=== PATIENT | female | born 1980 | race Asian ===

== ENCOUNTER → 2016-08-23 | Outpatient (CLI) | payer MEDICAID ==
[~2016-08-23] MED LIST: PREN1CAP7 PO
== END ==
LOC: HPND 09:39
PROVIDERS: ATTEND Obstetrics & Gynecology
DX: O09.522 Supervision of elderly multigravida, second trimester (principal); N84.1 Polyp of cervix uteri; N83.201 Unspecified ovarian cyst, right side; Z3A.18 18 weeks gestation of pregnancy
CPT/HCPCS: 76811

== ENCOUNTER 2017-01-25 20:30 | Inpatient (IN) | payer MEDICAID, OTHER ==
[2017-01-25] VITALS (15 sets, daily range): BP systolic 114–150; BP diastolic 60–82; PULSE 78–92; RESP 18; O2SAT 100
[~2017-01-25 20:30] MED LIST changes: +DIPHTH/TETANUS/ACEL PERTUSSIS (BOOSTER) 0.5 ML VIAL/PFS IM ONE; +FERRTAB6 PO; +MEASLES, MUMPS, RUBELLA VACCINE 0.5 ML VIAL SQ ONE
[2017-01-25] MEDS ORDERED: LACTATED RINGER'S 1000 ML INJ 1,000 ML IV PRN (21:12)
[2017-01-25] MEDS ORDERED: LACTATED RINGER'S 1000 ML INJ 1,000 ML IV SCH (21:12)
[2017-01-25] MEDS ORDERED: MINERAL OIL 10 ML VIAL TOPICAL PRN (21:15)
[2017-01-25] MEDS ORDERED: CITRIC ACID-SODIUM CITRATE LIQ 30 ML UDC PO SCH (21:15)
[2017-01-25] MEDS ORDERED: LIDOCAINE HCL 1% 50 ML VIAL I-DERMAL PRN (21:15)
[2017-01-25] MEDS ORDERED: LIDOCAINE HCL 1% 50 ML VIAL INFIL PRN (21:15)
[2017-01-25] MEDS ORDERED: SODIUM CHLORID 0.9% 500 ML INJ 500 ML IV PRN (21:15)
[2017-01-25] MEDS ORDERED: OXYTOCIN 30 UNITS-500ML PREMIX 500 ML IV ONE ×2 (21:15→23:15)
[2017-01-25] MEDS ORDERED: SODIUM CHLOR 0.9% 1000 ML INJ 1,000 ML IV PRN (21:32)
--- NOTE | 2017-01-25 21:43 | HHI.HP ---
History & Physical H&P HPI HPI Travel History International Travel<30 Days: No Contact w/Intl Traveler<30Days: No History of Present Illness HPI is a 36 yr old F at 40/1 presents to the ED with contractions. Accompanied by . States that she starting having contractions at 6:30pm, 3-6 minutes apart. She states they were getting stronger and more intense. She started having a bloody show this morning at 9: 30am. When she went to see her doctor this morning, she was 2cm dilated. She endorses good movement. She denies LOF, vaginal discharge, dysuria, CP, SOB. She has been receiving care at [facility]. History (Limited) History Past Medical History Narrative Medical None Medical History: Denies Significant Hx Obstetric History Obstetric History 1st , , full term, no complications Past Surgical History Surgical History: No Previous Surgery Family History Family History: Negative Social History Alcohol Use: No Tobacco Use: No Substance Abuse: No Allergies-Medications Allergies-Medications (Allergen,Severity, Reaction): Coded Allergies: No Known Allergies (Unverified Adverse Reaction, Unknown, 01/25/17) Home Meds Active Scripts Ferrous Enipbfjn-MU-V Complex- (Ferrocite Plus 106-1 mg) 106 Mg Iron-1 Mg Tab, 1 CAPLET PO BID for 30 Days, #60 CAPLET 1 Refill Prov:Chiquita Melendez CNM [facility] 01/25/17 W/O Vit A W/ Fe Fumar (Citranatal [place]) 27-1-260 Mg Cap, 1 CAP PO DAILY for Nutritional Supplement, #60 CAP 4 Refills Prov:Mirna Pack [employer] 06/19/16 ROS Review of Systems Except as stated in HPI: all other systems reviewed are Neg Physical Exam Physical Exam Narrative GENERAL: Well-nourished, well-developed patient. SKIN: Warm and dry. HEAD: Normocephalic and atraumatic. EYES: No scleral icterus. No injection or drainage. ENT: No nasal drainage noted. Mucous membranes pink. Airway patent. NECK: Supple, trachea midline. No JVD. CARDIOVASCULAR: Regular rate and rhythm without murmurs, gallops, or rubs. RESPIRATORY: Breath sounds equal bilaterally. No accessory muscle use. ABDOMEN/GI: Abdomen soft, non-tender, bowel sounds present, no rebound, no guarding GENITOURINARY: Exam performed by nurse External Genitalia: intact and normal in appearance Cervix: posterior Dilatation: 4cm Effacement: 100% Station: -1 Presentation: vertex Membranes: bulging Uterine Contractions: every 4-5 min Category: 1 Baseline: 130 Reactive: yes Variability: moderate Decels: no EXTREMITIES: No cyanosis or edema. BACK: Nontender without obvious deformity. NEUROLOGICAL: Awake and alert. Oriented x3 Data Data Data Vital Signs Reviewed: Yes Orders Orders Ob (2e) Additional Admit Info (01/25/17 21:00) Admit To Inpatient (01/25/17 ) Vital Signs (Adult) .Per protocol (01/25/17 21:12) Activity Oob Ad Qing (01/25/17 21:12) Heart (01/25/17 21:12) Amnioinfusion (01/25/17 21:12) Urinary Catheter Management .ONCE (01/25/17 21:12) Diet Liquid (01/26/17 Breakfast) Lactated Ringer's 1000 Ml Inj (Lr 1000 M (01/25/17 21:12) Lactated Ringer's 1000 Ml Inj (Lr 1000 M (01/25/17 21:12) Sodium Chlorid 0.9% 500 Ml Inj (Ns 500 M (01/25/17 21:15) Sodium Chlor 0.9% 1000 Ml Inj (Ns 1000 M (01/25/17 21:32) Lidocaine 1% Inj (50 Ml) (Xylocaine 1% I (01/25/17 21:15) Citric Acid-Sodium Citrate Liq (Bicitra (01/25/17 21:15) Fentanyl Inj (Fentanyl Inj) (01/25/17 21:15) Fentanyl Inj (Fentanyl Inj) (01/25/17 21:15) Complete Blood Count With Diff (01/25/17 21:12) Hold Clot (01/25/17 21:12) Abo/Rh Blood Type (01/25/17 21:12) Urinalysis - C+S If Indicated (01/25/17 21:12) Drug Screen, Random Urine (01/25/17 21:12) Resp Oxygen Non Rebreathe Mask (01/25/17 ) ^ Epidural / Intrathecal Infus (01/25/17 21:12) Oxytocin 30 Units-500ml Premix (Pitocin (01/25/17 21:15) Lidocaine 1% Inj (50 Ml) (Xylocaine 1% I (01/25/17 21:15) Light Mineral Oil (Muri-Lube Oil) (01/25/17 21:15) Inpatient Certification (01/25/17 ) Specimen To Be Collected PRN (01/25/17 21:12) Specimen To Be Collected PRN (01/25/17 21:12) Group B Strep: Negative MDM MDM Medical Record Reviewed: Yes Plan 36 yr old at 40/1 in active labor. Admit to L& D 1. Active Labor -FHTs, category 1, baseline HR 130 -Continue routine care 2. GBS neg s/d/w Dr. Martinez and Preeti Corona MD R1 Jan 25, 2017 21:43 Preeti Lockwood MD R1 Jan 25, 2017 21:43
[2017-01-25] MEDS ORDERED: fentaNYL 2MCG-BUPIV 0.125% INJ 100 ML ONE (21:56)
[2017-01-25 21:59] LABS: AUTOMATED NEUTROPHIL # 10.6 TH/MM3 (1.8-7.7); BASOPHIL # 0.1 TH/MM3 (0-0.2); BASOPHIL % 0.7 % (0.0-2.0); EOSINOPHIL # 0.1 TH/MM3 (0-0.4); EOSINOPHIL % 0.8 % (0.0-4.0); HEMATOCRIT 35.7 % (35.0-46.0); HEMO FLAGS DIFF FINAL; LYMPH % 14.3 % (9.0-44.0); LYMPHOCYTE # 1.9 TH/MM3 (1.0-4.8); MEAN CELL VOLUME 89.3 FL (80.0-100.0); MEAN CORPUSCULAR HEMOGLOBIN 29.8 PG (27.0-34.0); MEAN CORPUSCULAR HGB CONC 33.4 % (32.0-36.0); MONO % 5.4 % (0.0-8.0); NEUT % 78.8 % (16.0-70.0); PLATELET COUNT 191 TH/MM3 (150-450); RED BLOOD COUNT 3.99 MIL/MM3 (4.00-5.30); RED CELL DISTRIBUTION WIDTH 14.9 % (11.6-17.2); WHITE BLOOD COUNT 13.4 TH/MM3 (4.0-11.0)
[2017-01-25] MEDS ORDERED: fentaNYL 2MCG-BUPIV 0.125% 100 ML EPIDURAL SCH (22:00)
[2017-01-25] MEDS ORDERED: NO SYSTEM NARCOTICS PRN (22:00)
[2017-01-25] MEDS ORDERED: DO NOT ADMINISTER ANTICOAGULANTS PRN (22:00)
[2017-01-25 22:01] LABS: BACTERIA, URINE OCC /hpf; BLOOD, URINE LARGE (NEG); COMMENT (UR) CULT NOT INDICATED; CULTURE IF INDICATED CULT NOT INDICATED; GLUCOSE,URINE NEG (NEG); KETONE, URINE NEG (NEG); NITRITE,URINE NEG (NEG); PH, URINE 5.5 (5.0-8.5); SQUAMOUS EPITHELIAL CELL URINE 1 /hpf (0-5); URINE COLOR COLORLESS (YELLW/STRAW)
[2017-01-25] MEDS ORDERED: ePHEDrine/NS 25 MG/5 ML SYRINGE IV PUSH PRN (22:45)
[2017-01-25] MEDS ORDERED: ONDANSETRON ODT 4 MG TAB PO PRN (23:15)
[2017-01-25] MEDS ORDERED: IBUPROFEN 800 MG TAB PO PRN (23:15)
[2017-01-25] MEDS ORDERED: WITCH HAZEL 50%/GLYCERIN 12.5% 40 PAD JAR TOPICAL PRN (23:15)
[2017-01-25] MEDS ORDERED: ALUMINUM/MAGNESIUM/SIMETH 30 ML CUP PO PRN (23:15)
[2017-01-25] MEDS ORDERED: OXYTOCIN 30 UNITS-500ML PREMIX 500 ML IV SCH (23:15)
[2017-01-25] MEDS ORDERED: ACETAMINOPHEN 325 MG TAB PO PRN (23:15)
[2017-01-25] MEDS ORDERED: SODIUM CHLORIDE 0.9% FLUSH 10 ML FLUSH IV FLUSH PRN (23:15)
[2017-01-25] MEDS ORDERED: DOCUSATE SODIUM 50 MG/SENNA 8.6 MG TAB PO PRN (23:15)
[2017-01-25] MEDS ORDERED: ZOLPIDEM TARTRATE 5 MG TAB PO PRN (23:15)
[2017-01-25] MEDS ORDERED: BENZOCAINE 20% TOPICAL SPRAY 60 ML CAN TOPICAL PRN (23:15)
--- NOTE | 2017-01-25 23:21 | PD.OB.DELI ---
Weeks gestation: 40 Gest age assessed date: Jan 25, 2017 Pt started active labor?: Yes Active labor start date: Jan 25, 2017 Medical induction of labor?: No Artificial rupture of membrane: No Anesthesia: Epidural Episiotomy: None Vaginal Delivery: Normal, Spontaneous Presentation: Occiput anterior Nuchal Cord: None Delayed cord clamping (45 sec): Yes : Female Delivery date: Jan 25, 2017 Delivery time: 23:07 One Minute : 8 Five Minute : 9 Placenta: Spontaneous delivery, Intact, 3 vessel cord Laceration: Vaginal laceration, 1 deg (left side wall, small nonbleeding tear, no repair needed ) Preeti Lockwood MD R1 Jan 25, 2017 23:21
[2017-01-26] VITALS (11 sets, daily range): BP systolic 97–127; BP diastolic 57–73; PULSE 67–84; RESP 18; TEMP 97.8–98.1
--- NOTE | 2017-01-26 08:25 | HHI.OB ---
Subjective Post Day: 1 Remarks day #1. AFVSS overnight. Pain controlled. Decreased lochia. Denies dysuria. No breast tenderness. She is feeding the baby via breast. Appetite good. No nausea or vomiting. No flatus. No bowel movement. Ambulating well. Denies calf pain, shortness of breath, or cough. Otherwise, she is doing well this morning and has no other complaints. Objective Vitals/I&O Vital Signs Date Time Temp Pulse Resp B/P (MAP) Pulse Ox O2 Delivery O2 Flow Rate FiO2 01/26/17 01:56 115/57 (76) 01/26/17 01:56 98.1 77 18 01/26/17 01:15 77 97/66 (76) 01/26/17 01:15 77 97/66 (76) 01/26/17 01:00 75 119/68 (85) 01/26/17 00:45 76 123/73 (90) 01/26/17 00:31 84 114/72 (86) 01/26/17 00:20 18 01/26/17 00:15 76 127/63 (84) 01/26/17 00:15 18 01/26/17 00:02 97.9 01/26/17 00:00 73 124/65 (84) 01/25/17 23:56 18 01/25/17 23:45 81 124/66 (85) 01/25/17 23:30 83 18 142/60 (87) 01/25/17 23:15 83 114/72 (86) 01/25/17 23:15 18 01/25/17 23:00 84 123/71 (88) 01/25/17 22:45 85 133/68 (89) 01/25/17 22:30 89 135/73 (93) 01/25/17 22:25 90 150/73 (98) 01/25/17 22:20 83 145/75 (98) 01/25/17 22:17 78 136/69 (91) 01/25/17 22:11 92 129/73 (91) 01/25/17 22:10 100 01/25/17 22:10 87 01/25/17 22:09 89 136/76 (96) 01/25/17 22:06 85 140/73 (95) 01/25/17 22:04 82 145/82 (103) Objective Remarks GENERAL: Well-nourished, well-developed patient. CARDIOVASCULAR: Regular rate and rhythm without murmurs, gallops, or rubs. RESPIRATORY: Breath sounds equal bilaterally. No accessory muscle use. ABDOMEN/GI: Abdomen soft, non-tender. Fundus: Firm, non-tender at umbilicus. GENITOURINARY: Light to moderate bleeding. EXTREMITIES: No cyanosis or edema, non-tender, without signs of DVT. Medications and IVs Current Medications Medications (Trade) Dose Ordered Sig/Francine Route Start Time Stop Time Status Last Admin (NS Flush) 2 ml BID IV FLUSH 01/26/17 09:00 (NS Flush) 2 ml UNSCH PRN IV FLUSH 01/25/17 23:15 01/26/17 01:49 (Tylenol) 650 mg Q4H PRN PO 01/25/17 23:15 (Motrin) 800 mg Q8H PRN PO 01/25/17 23:15 (Americaine 20% Top Spr) 1 spray Q4H PRN TOPICAL 01/25/17 23:15 01/26/17 05:28 (Tucks Pads) 1 applic QID PRN TOPICAL 01/25/17 23:15 01/26/17 05:28 (Tracy-Colace) 2 tab Q12H PRN PO 01/25/17 23:15 (Ambien) 5 mg HS PRN PO 01/25/17 23:15 (Mag-Al Plus Susp Liq) 15 ml Q8H PRN PO 01/25/17 23:15 (Zofran Odt) 4 mg Q6H PRN PO 01/25/17 23:15 Assessment/Plan Problem List: (1) Normal vaginal delivery ICD Codes: O80 - Encounter for full-term uncomplicated delivery Assessment and Plan 36y/o who is PPD#1 s/p . -Continue routine care. -Percocet and Motrin PRN pain. -Encouraged OOB. Advised pelvic rest for 6 wks. -Will need a f/u appt. within 6 wks. -D/c in 1-2 more days. [facility] OB attending Tamiko Sutton MD R1 Jan 26, 2017 08:25
[2017-01-26] MEDS ORDERED: SODIUM CHLORIDE 0.9% FLUSH 10 ML FLUSH IV FLUSH SCH (09:00)
[2017-01-27 08:00] VITALS: BP 120/66; PULSE 67; RESP 17; TEMP 97.9; O2SAT 98
--- NOTE | 2017-01-27 08:52 | HHI.OB ---
Subjective Post Day: 2 Remarks day #2. AFVSS overnight. Pain controlled. Decreased lochia. Denies dysuria. No breast tenderness. She is feeding the baby via breast. Appetite good. No nausea or vomiting. Positive flatus. No bowel movement. Ambulating well. Denies calf pain, shortness of breath, or cough. Otherwise, she is doing well this morning and has no other complaints. Objective Vitals/I&O Vital Signs Date Time Temp Pulse Resp B/P (MAP) Pulse Ox O2 Delivery O2 Flow Rate FiO2 01/26/17 20:00 97.8 67 18 115/63 (80) Objective Remarks GENERAL: Well-nourished, well-developed patient. CARDIOVASCULAR: Regular rate and rhythm without murmurs, gallops, or rubs. RESPIRATORY: Breath sounds equal bilaterally. No accessory muscle use. ABDOMEN/GI: Abdomen soft, non-tender. Fundus: Firm, non-tender below umbilicus. GENITOURINARY: Light to moderate bleeding. EXTREMITIES: No cyanosis or edema, non-tender, without signs of DVT. Medications and IVs Current Medications Medications (Trade) Dose Ordered Sig/Francine Route Start Time Stop Time Status Last Admin (NS Flush) 2 ml BID IV FLUSH 01/26/17 09:00 (NS Flush) 2 ml UNSCH PRN IV FLUSH 01/25/17 23:15 01/26/17 01:49 (Tylenol) 650 mg Q4H PRN PO 01/25/17 23:15 (Motrin) 800 mg Q8H PRN PO 01/25/17 23:15 (Americaine 20% Top Spr) 1 spray Q4H PRN TOPICAL 01/25/17 23:15 01/26/17 05:28 (Tucks Pads) 1 applic QID PRN TOPICAL 01/25/17 23:15 01/26/17 05:28 (Tracy-Colace) 2 tab Q12H PRN PO 01/25/17 23:15 (Ambien) 5 mg HS PRN PO 01/25/17 23:15 (Mag-Al Plus Susp Liq) 15 ml Q8H PRN PO 01/25/17 23:15 (Zofran Odt) 4 mg Q6H PRN PO 01/25/17 23:15 Assessment/Plan Problem List: (1) Normal vaginal delivery ICD Codes: O80 - Encounter for full-term uncomplicated delivery Assessment and Plan 36y/o who is PPD#2 s/p -Continue routine care. -Percocet and Motrin PRN pain. -Encouraged OOB. Advised pelvic rest for 6 wks. -Will need a f/u appt. within 6 wks. -D/c in 1-2 more days. -Re: control - does not want any DW Dr. Smith Discharge Planning Discharge home today Deena Wolff MD R2 Jan 27, 2017 08:52
[2017-01-27] MEDS ORDERED: IBUP1TAB7 PO (09:04)
--- NOTE | 2017-01-27 09:05 | HHI.DCPOC ---
Discharge Care Plan Diagnosis: (1) Normal vaginal delivery Report Symptoms to Your Doctor -Temperature above 100.5 degrees -Redness, of incision or excessive or foul smelling drainage -Unusual pain or calf pain -Increased vaginal bleeding -Painful or difficulty urinating -Feelings of extreme sadness or anxiety after 2 weeks Goals to Promote Your Health * To prevent worsening of your condition and complications * To maintain your health at the optimal level Directions to Meet Your Goals Take your medications as prescribed Follow your dietary instruction Follow activity as directed Ensure plenty of rest for recovery Drink fluids for hydration Keep your appointments as scheduled Take your immunizations and boosters as scheduled If your symptoms worsen call your PCP, if no PCP go to Urgent Care Center or Emergency Room Smoking is Dangerous to Your Health. Avoid second hand smoke Call the 24-hour crisis hotline for domestic abuse at Deena Wolff MD R2 Jan 27, 2017 09:05
== END 2017-01-27 12:27 | disposition home or self-care (01) | DRG 775 ==
LOC: HOBED 20:30 → H2EB 21:04 → H1EA 01-26 01:33
PROVIDERS: ADMIT Obstetrics & Gynecology Maternal & Fetal Medicine; ATTEND Obstetrics & Gynecology Maternal & Fetal Medicine
PROC: 10E0XZZ Delivery of Products of Conception, External Approach (ICD-10-PCS; principal; 2017-01-25)
DX: O70.0 First degree perineal laceration during delivery (principal); Z37.0 Single live birth; Z3A.40 40 weeks gestation of pregnancy
CPT/HCPCS: 80307; 81001; 85025; 86900; 86901; 90715; J2590; J7120